=== PATIENT | female | born 1935 | race Caucasian/White ===

== ENCOUNTER 2016-12-21 14:31 | Emergency (ER) | payer MEDICARE, MEDICAID ==
[2016-12-21] MEDS ORDERED: Lorazepam 2 MG/ML VIAL ONE (14:55)
[2016-12-21] MEDS ORDERED: methylPREDNISolone Sod Succ/PF 125 MG/2 ML VIAL ONE (14:55)
[2016-12-21] MEDS ORDERED: Ketorolac Tromethamine 30 MG/ML VIAL ONE (15:05)
--- NOTE | 2016-12-21 15:10 | RAD ---
PORTABLE CHEST 1 VIEW: DATE: 12/21/16. TIME: 2:56 p.m. HISTORY: Dyspnea. Chest pain. FINDINGS: Comparison is made with the exam of 11/26/15. The heart size is prominent but stable. No focal areas of consolidation, pneumothorax, velasquez pulmon ashley edema, or pleural effusions are seen. There are postop changes in the right shoulder and the lo wer cervical spine. IMPRESSION: No acute process. POS: ELIJAH
[2016-12-21 15:44] LABS: #Basophils 0.1 thou/uL (0.0-0.2); #Eosinphils 0.7 thou/uL (0.0-0.7); #Lymphocytes 2.1 thou/uL (1.20-3.40); #Monocytes 1.3 thou/uL (0.11-0.59); #Neutrophils 5.9 thou/uL (1.40-6.50); %Basophils 1.2 % (0.0-1.0); %Lymphocytes 21.2 % (21.0-51.0); %Monocytes 12.4 % (0.0-10.0); %Neutrophils 58.3 % (42.0-75.0); Hemoglobin 14.8 g/dL (12.0-16.0); Mean Corpuscular HGB CONC 32.2 g/dL (32.0-36.0); Mean Corpuscular Hemoglobin 28.3 pg (27.0-31.0); Mean Corpuscular Volume 87.8 fl (81.0-99.0); Platelet Count 200 thou/uL (130-400); RBC Distribution Width 11.6 % (11.5-14.5); Red Blood Cell (RBC) Count 5.24 mill/uL (4.20-5.40); White Blood Cell (WBC) Count 10.1 thou/uL (4.8-10.8)
[2016-12-21 15:53] LABS: Anion Gap 15 mmol/L (10-20); BUN (Urea Nitrogen) 14 mg/dL (9.8-20.1); Calc. Creatinine Clearance 0 mL/min (70-130); Calcium 9.6 mg/dL (7.8-10.44); Carbon Dioxide 25 mmol/L (23-31); Chloride 102 mmol/L (98-107); Estimated GFR-MDRD 56; Glucose 119 mg/dL (83-110); Potassium 4.9 mmol/L (3.5-5.1); Sodium 137 mmol/L (136-145)
[2016-12-21 15:58] LABS: CKMB 1.2 ng/mL (0-6.6)
[2016-12-21] MEDS ORDERED: Azithromycin 250 MG TAB ONE (16:15)
== END 2016-12-21 16:32 | disposition home or self-care (01) ==
LOC: NAV ERS 14:31
DX: J20.9 Acute bronchitis, unspecified (principal); I49.9 Cardiac arrhythmia, unspecified; I48.91 Unspecified atrial fibrillation; I10 Essential (primary) hypertension; J45.909 Unspecified asthma, uncomplicated; F41.9 Anxiety disorder, unspecified; Z87.891 Personal history of nicotine dependence
CPT/HCPCS: 36415; 71010; 80048; 82553; 83880; 84484; 85025; 85379; 93005; 94760; 96374; 96375; J1885; J2060; J2930; J7620

== ENCOUNTER 2017-11-09 18:10 | Emergency (ER) | payer MEDICARE, OTHER ==
[2017-11-09] MEDS ORDERED: Colchicine 0.6 MG TAB ONE (18:56)
== END 2017-11-09 19:06 | disposition home or self-care (01) ==
LOC: NAV ERS 18:10
DX: M10.9 Gout, unspecified (principal); I48.91 Unspecified atrial fibrillation; J45.909 Unspecified asthma, uncomplicated; K58.9 Irritable bowel syndrome, unspecified; I10 Essential (primary) hypertension; F41.9 Anxiety disorder, unspecified; Z87.891 Personal history of nicotine dependence; Z79.899 Other long term (current) drug therapy
CPT/HCPCS: 99283

== ENCOUNTER 2017-11-25 14:54 | Emergency (ER) | payer MEDICARE, MEDICAID ==
--- NOTE | 2017-11-25 15:47 | RAD ---
TWO VIEW CHEST: COMPARISON: 12/21/16. INDICATION: Emergency exam, shortness of breath. FINDINGS: There is subtle patchy left basilar density. Right lung is grossly clear. Cardiac silhouette is nor mal in size as pulmonary vasculature. There is osseous degenerative change. No additional significa nt interval change. IMPRESSION: Patchy left basilar density. Correlate for evidence of pneumonia. Alternatively, this could relate to an area of atelectasis. Imaging followup may be obtained to confirm resolution. POS: ELIJAH
[2017-11-25 15:58] LABS: #Basophils 0.1 thou/uL (0.0-0.2); #Eosinphils 0.1 thou/uL (0.0-0.7); #Lymphocytes 3.2 thou/uL (1.20-3.40); #Monocytes 1.4 thou/uL (0.11-0.59); #Neutrophils 12.8 thou/uL (1.40-6.50); %Basophils 0.7 % (0.0-1.0); %Eosinophils 0.5 % (0.0-10.0); %Lymphocytes 18.3 % (21.0-51.0); %Monocytes 7.9 % (0.0-10.0); %Neutrophils 72.6 % (42.0-75.0); Hemoglobin 15.4 g/dL (12.0-16.0); Mean Corpuscular HGB CONC 31.6 g/dL (32.0-36.0); Mean Corpuscular Hemoglobin 27.1 pg (27.0-31.0); Mean Corpuscular Volume 85.7 fL (78.0-98.0); Mean Platelet Volume 11.1 fL (7.4-10.4); Platelet Count 214 thou/uL (130-400); RBC Distribution Width 12.8 % (11.5-14.5); Red Blood Cell (RBC) Count 5.67 mill/uL (4.20-5.40); White Blood Cell (WBC) Count 17.6 thou/uL (4.8-10.8)
[2017-11-25 16:03] LABS: ALT (SGPT) 30 U/L (8-55); AST (SGOT) 16 U/L (5-34); Albumin 4.2 g/dL (3.4-4.8); Alkaline Phosphatase 69 U/L (40-150); Anion Gap 16 mmol/L (10-20); BUN (Urea Nitrogen) 26 mg/dL (9.8-20.1); CK (CPK) 32 U/L (29-168); Calc. Creatinine Clearance 0 mL/min (70-130); Calcium 9.4 mg/dL (7.8-10.44); Carbon Dioxide 23 mmol/L (23-31); Chloride 104 mmol/L (98-107); Estimated GFR-MDRD 52; Globulin 2.9 g/dL (2.4-3.5); Glucose 150 mg/dL (83-110); Potassium 4.1 mmol/L (3.5-5.1); Protein, Total 7.1 g/dL (6.0-8.3); Sodium 139 mmol/L (136-145)
[2017-11-25 16:04] LABS: CKMB 0.6 ng/mL (0-6.6); Troponin I Less than 0.010 ng/mL (< 0.028)
== END 2017-11-25 18:08 | disposition short-term general hospital (02) ==
LOC: NAV ERS 14:54
DX: J18.9 Pneumonia, unspecified organism (principal); I48.91 Unspecified atrial fibrillation; K58.9 Irritable bowel syndrome, unspecified; I10 Essential (primary) hypertension; J45.909 Unspecified asthma, uncomplicated; F41.9 Anxiety disorder, unspecified; Z87.891 Personal history of nicotine dependence; Z79.899 Other long term (current) drug therapy; Z79.1 Long term (current) use of non-steroidal anti-inflammatories (NSAID)
CPT/HCPCS: 36415; 71046; 80053; 82550; 82553; 83880; 84484; 85025; 87040; 93005; 96365; J1956

== ENCOUNTER 2018-07-31 14:13 | Outpatient (CLI) | payer MEDICARE, OTHER ==
--- NOTE | 2018-07-31 14:26 | RAD ---
XR Chest Pa Lat STANDARD HISTORY:Cough COMPARISON: 11/25/2017 study FINDINGS: Heart size and mediastinum are within normal limits. The lungs are clear of any infiltrativ e process. There is some linear change in the left base which is stable and appears to represent scar. Postoperative changes of the right shoulder are noted. IMPRESSION: No acute findings.
== END 2018-07-31 14:14 | disposition home or self-care (01) ==
LOC: NAV RAD 14:13
PROVIDERS: ATTEND Family Medicine
DX: R05 Cough (principal)
CPT/HCPCS: 71046

== ENCOUNTER 2018-10-10 12:58 | Emergency (ER) | payer MEDICARE, OTHER ==
[2018-10-10] MEDS ORDERED: traMADol HCl 50 MG TAB ONE (14:06)
--- NOTE | 2018-10-10 14:35 | RAD ---
LEFT FOOT 3 VIEWS: HISTORY: Left foot pain, gout. FINDINGS/IMPRESSION: Mild degenerative changes are present. No fracture, dislocation, or bone destruction is identified. A plantar calcaneal spur is present. POS: ELIJAH
== END 2018-10-10 14:07 | disposition home or self-care (01) ==
LOC: NAV ERS 12:58
DX: M72.2 Plantar fascial fibromatosis (principal); M10.9 Gout, unspecified; I48.91 Unspecified atrial fibrillation; K58.9 Irritable bowel syndrome, unspecified; F41.9 Anxiety disorder, unspecified; G47.30 Sleep apnea, unspecified; I10 Essential (primary) hypertension; Z87.891 Personal history of nicotine dependence; Z79.51 Long term (current) use of inhaled steroids; Z79.899 Other long term (current) drug therapy

== ENCOUNTER 2018-10-15 14:16 | Outpatient (CLI) | payer MEDICARE, OTHER ==
--- NOTE | 2018-10-15 15:21 | RAD ---
RIGHT SHOULDER THREE VIEWS: 10/15/18 HISTORY: Right shoulder pain, post right shoulder replacement seven months ago. FINDINGS: Right total reverse shoulder arthroplasty changes. Anterior cervical fusion changes of the lower cerv ical spine. No evidence for acute fracture or dislocation. IMPRESSION: Reverse shoulder arthroplasty changes. Anterior cervical fusion changes of the lower cervical spine. Degenerative AC joint arthrosis changes but no acute fracture or dislocation. POS: C
== END 2018-10-15 14:17 | disposition home or self-care (01) ==
LOC: NAV RAD 14:16
PROVIDERS: ATTEND Orthopaedic Surgery
DX: M25.511 Pain in right shoulder (principal); M19.011 Primary osteoarthritis, right shoulder; Z96.611 Presence of right artificial shoulder joint; Z98.1 Arthrodesis status

== ENCOUNTER 2019-09-28 18:07 | Inpatient (IN) | payer MEDICARE, MEDICAID ==
[2019-09-28 18:25] VITALS: BMI 44.3
[2019-09-28] MEDS ORDERED: Albuterol Sulfate 2.5 mg/3 ml Neb NEB PRN (22:42)
[2019-09-28] MEDS ORDERED: Acetaminophen 325 MG TAB PO PRN (22:42)
[2019-09-28] MEDS ORDERED: Atorvastatin Calcium 10 MG TAB PO SCH (22:42)
[2019-09-28] MEDS ORDERED: Montelukast Sodium 10 mg Tablet PO SCH (22:42)
[2019-09-28] MEDS ORDERED: Senokot S 8.6-50 MG TAB PO PRN (22:42)
[2019-09-28] MEDS ORDERED: Apixaban 5 MG TAB PO SCH (22:42)
[2019-09-28] MEDS ORDERED: ALPRAZolam 0.5 MG TAB PO PRN (22:45)
[2019-09-28] MEDS ORDERED: tiZANidine HCl 4 MG TAB PO PRN (22:50)
[2019-09-28] MEDS ORDERED: Meclizine HCl 25 MG TAB PO PRN (22:52)
[2019-09-28] MEDS: Sodium Chloride 0.9% 1,000 ML IV SCH (22:57)
[2019-09-28] MEDS: Morphine 4 MG/ML VIAL SLOW IVP PRN (22:58)
[2019-09-28] MEDS: Ondansetron PF 4 MG/2 ML Vial IVP PRN (22:59)
[2019-09-28] MEDS ORDERED: Betamethasone Val 0.1% OINT 15 GM TUBE TOP SCH (23:00)
[2019-09-28] MEDS ORDERED: Hydrocortisone 1% Cream 30 GM TUBE TOP SCH (23:00)
[2019-09-28] MEDS: ALPRAZolam 0.5 MG TAB PO PRN (23:06)
[2019-09-29] MEDS: metroNIDAZOLE 500 MG in Premix Bag 1 BAG IVPB SCH ×3 (01:15→17:14)
[2019-09-29] MEDS ORDERED: Sodium Chloride 0.9% 20 ML ONE (05:38)
[2019-09-29 06:07] LABS: #Basophils 0.1 thou/uL (0.0-0.2); #Eosinphils 0.2 thou/uL (0.0-0.7); #Lymphocytes 2.6 thou/uL (1.20-3.40); #Monocytes 0.9 thou/uL (0.11-0.59); #Neutrophils 4.5 thou/uL (1.40-6.50); %Basophils 1.3 % (0.0-1.0); %Eosinophils 2.4 % (0.0-10.0); %Lymphocytes 30.8 % (21.0-51.0); %Monocytes 11.2 % (0.0-10.0); %Neutrophils 54.4 % (42.0-75.0); Hemoglobin 12.3 g/dL (12.0-16.0); Mean Corpuscular HGB CONC 30.8 g/dL (32.0-36.0); Mean Corpuscular Hemoglobin 28.8 pg (27.0-31.0); Mean Corpuscular Volume 93.4 fL (78.0-98.0); Platelet Count 138 thou/uL (130-400); Red Blood Cell (RBC) Count 4.26 mill/uL (4.20-5.40); White Blood Cell (WBC) Count 8.3 thou/uL (4.8-10.8)
[2019-09-29 06:11] LABS: Anion Gap 14 mmol/L (10-20); BUN (Urea Nitrogen) 9 mg/dL (9.8-20.1); Calc. Creatinine Clearance 88 mL/min (70-130); Calcium 7.9 mg/dL (7.8-10.44); Carbon Dioxide 21 mmol/L (23-31); Chloride 109 mmol/L (98-107); Estimated GFR-MDRD 65; Glucose 107 mg/dL (83-110); Sodium 140 mmol/L (136-145)
[2019-09-29] MEDS: Ondansetron PF 4 MG/2 ML Vial IVP PRN (07:11)
[2019-09-29] MEDS: Allopurinol 100 MG TAB PO SCH (09:08)
[2019-09-29] MEDS: Dronedarone HCl 400 MG TAB PO SCH ×2 (09:08→17:14)
[2019-09-29] MEDS: Fluticasone Propionate Nasal Spray 16 gm Bottle NASAL SCH (09:08)
[2019-09-29] MEDS: Metoprolol Tartrate 50 MG TAB PO SCH (09:09)
[2019-09-29] MEDS: Mometasone/Formoterol 200/5 60 PUFF INH SCH ×2 (09:11→20:39)
--- NOTE | 2019-09-29 11:14 | PRG ---
DATE OF SERVICE: 09/29/2019 SUBJECTIVE: The patient is an 84-year-old female, who was admitted last night for acute diverticulitis. The patient states that she was able to rest a little bit and that the acute sharp pain that she was experiencing yesterday is improved, but she still has pain primarily in the left lower quadrant. She had some nausea this morning and was dosed with Zofran, and she is now able to tolerate and holding down some liquids. The patient states that she is still not back to her baseline, but does feel like things are slowly improving. OBJECTIVE: VITAL SIGNS: Temperature 98.1, pulse 86, respiratory rate 18, O2 saturation 92% on room air, blood pressure 176/81. GENERAL: The patient is awake, alert, and oriented, in no acute distress. She is seen sitting up on the side of her bed. CARDIOVASCULAR: Regular rate and rhythm without murmurs, gallops, or rubs. LUNGS: Clear to auscultation bilaterally without wheezing or rhonchi. ABDOMEN: Soft. Tender to palpation in the left lower quadrant with bowel sounds. No guarding or rebound tenderness. EXTREMITIES: There is no clubbing or cyanosis. The patient has trace lower extremity edema, which is stable. PSYCHIATRIC: The patient displays appropriate mood and affect. LABORATORY DATA: 1. CBC: WBCs 8.3, hemoglobin 12.3, hematocrit 39.8, platelet count 138. 2. BMP: Sodium 140, potassium 4.0, chloride 109, bicarb 21, BUN 9, creatinine 0.8, glucose 107, calcium 7.9. ASSESSMENT AND PLAN: 1. Acute diverticulitis: The patient will continue with IV Cipro and Flagyl today. We will continue with liquids today, and if pain starts to improve, can advance diet. We will repeat a CBC in the morning. 2. Lactic acidosis: Repeat lactate had come down from 2.3 to 1.4. I think this is mostly due to dehydration. The patient has had IV fluids overnight. We will stop these this morning as the patient is now tolerating clear liquids. 3. Chronic atrial fibrillation: The patient is currently rhythm controlled with Multaq. We will continue her Eliquis. She does appear to be in a sinus rhythm this morning. 4. Hypertension: Blood pressure is elevated this morning, likely secondary to some pain. We will continue to monitor blood pressure. We have restarted her home medications. 5. Gastroesophageal reflux disease: Continue PPI. The patient's chart medical record number changed from the time that I had admitted the patient, dictated the patient, and placed on my orders to the time that the patient got to the floor. They are working to combine these charts and get the dictation move to the correct chart. Job ID: [id number]
[2019-09-29] MEDS: Morphine 4 MG/ML VIAL SLOW IVP PRN ×2 (11:57→17:32)
[2019-09-29] MEDS: Sodium Chloride 0.9% 1,000 ML IV SCH (13:18)
[2019-09-29] MEDS ORDERED: Sodium Chloride 0.9% 10 ML ONE ×2 (16:53→18:18)
[2019-09-29] MEDS: ALPRAZolam 0.5 MG TAB PO PRN (20:39)
[2019-09-29] MEDS: Apixaban 5 MG TAB PO SCH (20:41)
[2019-09-29] MEDS ORDERED: Atorvastatin Calcium 10 MG TAB PO SCH (21:00)
[2019-09-29] MEDS ORDERED: Montelukast Sodium 10 mg Tablet PO SCH (21:00)
[2019-09-30] MEDS: Ondansetron PF 4 MG/2 ML Vial IVP PRN (00:41)
[2019-09-30] MEDS: metroNIDAZOLE 500 MG in Premix Bag 1 BAG IVPB SCH (00:41)
[2019-09-30 05:32] LABS: #Basophils 0.1 thou/uL (0.0-0.2); #Eosinphils 0.1 thou/uL (0.0-0.7); #Lymphocytes 2.9 thou/uL (1.20-3.40); #Monocytes 0.8 thou/uL (0.11-0.59); #Neutrophils 5.7 thou/uL (1.40-6.50); %Basophils 0.8 % (0.0-1.0); %Eosinophils 0.7 % (0.0-10.0); %Lymphocytes 30.6 % (21.0-51.0); %Monocytes 8.6 % (0.0-10.0); %Neutrophils 59.2 % (42.0-75.0); Hemoglobin 12.3 g/dL (12.0-16.0); Mean Corpuscular HGB CONC 31.2 g/dL (32.0-36.0); Mean Corpuscular Hemoglobin 28.8 pg (27.0-31.0); Mean Corpuscular Volume 92.3 fL (78.0-98.0); Mean Platelet Volume 11.2 fL (7.4-10.4); Platelet Count 151 thou/uL (130-400); RBC Distribution Width 12.8 % (11.5-14.5); Red Blood Cell (RBC) Count 4.27 mill/uL (4.20-5.40); White Blood Cell (WBC) Count 9.6 thou/uL (4.8-10.8)
[2019-09-30 05:43] LABS: Anion Gap 12 mmol/L (10-20); BUN (Urea Nitrogen) 8 mg/dL (9.8-20.1); Calc. Creatinine Clearance 75 mL/min (70-130); Calcium 8.1 mg/dL (7.8-10.44); Carbon Dioxide 24 mmol/L (23-31); Chloride 105 mmol/L (98-107); Estimated GFR-MDRD 55; Glucose 121 mg/dL (83-110); Potassium 4.4 mmol/L (3.5-5.1); Sodium 137 mmol/L (136-145)
[2019-09-30] MEDS: Mometasone/Formoterol 200/5 60 PUFF INH SCH (08:32)
[2019-09-30] MEDS: Fluticasone Propionate Nasal Spray 16 gm Bottle NASAL SCH (08:33)
[2019-09-30] MEDS: Metoprolol Tartrate 50 MG TAB PO SCH (08:33)
[2019-09-30] MEDS: Apixaban 5 MG TAB PO SCH (08:34)
[2019-09-30] MEDS: Allopurinol 100 MG TAB PO SCH (08:34)
[2019-09-30] MEDS: Dronedarone HCl 400 MG TAB PO SCH (08:36)
--- NOTE | 2019-09-30 08:50 | PRG ---
DATE OF SERVICE: 09/30/2019 SUBJECTIVE: The patient is an 84-year-old female, hospitalized for acute diverticulitis. The patient states that she is tired of the clear liquid diet. She notes that there is significant improvement in her left lower quadrant pain and is able to maneuver herself in and out of the bed without pain. OBJECTIVE: VITAL SIGNS: Temperature 97.0, pulse 72, respiration rate 20, O2 sat 94% on room air, and blood pressure 142/76. GENERAL: The patient is awake, alert, oriented, in no acute distress. CARDIOVASCULAR: Regular rate and rhythm without murmurs, gallops or rubs. LUNGS: Clear to auscultation bilaterally without wheezing or rhonchi. ABDOMEN: Soft. Very minimal tenderness noted to the left lower quadrant on deep palpation. No guarding or rebound tenderness is noted. Bowel sounds are present. EXTREMITIES: There is no clubbing or cyanosis. The patient has trace edema in bilateral lower extremities. PSYCHIATRIC: The patient displays an appropriate mood and affect. LABORATORY DATA: 1. CBC: WBCs 9.6, hemoglobin 12.3, hematocrit 39.4, and platelet count 151. 2. BMP: Sodium 137, potassium 4.4, chloride 105, bicarb 24, BUN 8, creatinine 0.97, glucose 121, and calcium 8.1. ASSESSMENT AND PLAN: 1. Acute diverticulitis: We will transition the patient from IV Cipro and Flagyl to p.o. We will also advance the patient's diet, and if she tolerates this, can likely be discharged home this afternoon. 2. Hypertension: Blood pressures are stable. 3. Lactic acidosis, resolved. 4. Chronic atrial fibrillation: The patient is currently rhythm controlled with Multaq and continues on Eliquis for anticoagulation. 5. Gastroesophageal reflux disease: Continue PPI. Job ID: [id number]
[2019-09-30] MEDS: metroNIDAZOLE 500 MG TAB PO SCH ×2 (09:54→14:23)
[2019-09-30 14:09] VITALS: BP 125/60; TEMP 97.7
[2019-09-30] MEDS ORDERED: Ciprofloxacin 500 MG TAB PO SCH (20:00)
== END 2019-09-30 14:50 | disposition home or self-care (01) | DRG 392 ==
LOC: INTOOBSV 18:07 → NAV ACUTE 18:07 → OBSVTOIN 18:07
PROVIDERS: ADMIT Family Medicine; ATTEND Family Medicine
DX: K57.92 Diverticulitis of intestine, part unspecified, without perforation or abscess without bleeding (principal); E87.2 Acidosis; I48.20 Chronic atrial fibrillation, unspecified; K21.9 Gastro-esophageal reflux disease without esophagitis; E86.0 Dehydration; I10 Essential (primary) hypertension; Z79.01 Long term (current) use of anticoagulants
CPT/HCPCS: 36415; 71045; 74177; 80048; 80053; 81003; 81015; 83605; 83690; 84484; 85025; 87040; 93005; 94640; 94760; 96361; 96365; 96375; 96376; J0744; J2270; J2405; J7050; J7611; Q9967

== ENCOUNTER 2020-05-17 10:57 | Emergency (ER) | payer MEDICARE, OTHER ==
[2020-05-17] MEDS ORDERED: Sulfameth/Trimethoprim DS 800-160mg TAB ONE (11:26)
== END 2020-05-17 11:34 | disposition home or self-care (01) ==
LOC: NAV ERS 10:57
DX: S51.811D Laceration without foreign body of right forearm, subsequent encounter (principal); L03.113 Cellulitis of right upper limb; I48.91 Unspecified atrial fibrillation; K58.9 Irritable bowel syndrome, unspecified; I10 Essential (primary) hypertension; J45.909 Unspecified asthma, uncomplicated; G47.30 Sleep apnea, unspecified; M10.9 Gout, unspecified; Z87.891 Personal history of nicotine dependence; Z79.01 Long term (current) use of anticoagulants; Z79.899 Other long term (current) drug therapy; Z79.891 Long term (current) use of opiate analgesic; Z85.828 Personal history of other malignant neoplasm of skin; X58.XXXD Exposure to other specified factors, subsequent encounter
CPT/HCPCS: 99283

== ENCOUNTER 2021-07-24 08:59 | Outpatient (CLI) | payer MEDICARE, OTHER ==
[2021-07-24 09:47] LABS: ALT (SGPT) 21 U/L (8-55); AST (SGOT) 27 U/L (5-34); Alkaline Phosphatase 63 U/L (40-110); Anion Gap 17 mmol/L (10-20); BUN (Urea Nitrogen) 13 mg/dL (9.8-20.1); Bilirubin, Total 1.3 mg/dL (0.2-1.2); Calc. Creatinine Clearance 0 mL/min (70-130); Calcium 9.6 mg/dL (7.8-10.44); Carbon Dioxide 26 mmol/L (23-31); Chloride 104 mmol/L (98-107); Globulin 3.3 g/dL (2.4-3.5); Glucose 128 mg/dL (83-110); Lipase 39 U/L (8-78); Potassium 4.3 mmol/L (3.5-5.1); Protein, Total 7.3 g/dL (5.8-8.1); Sodium 143 mmol/L (136-145)
[2021-07-24 10:11] LABS: #Basophils 0.1 thou/uL (0.0-0.2); #Eosinphils 0.2 thou/uL (0.0-0.7); #Lymphocytes 3.6 thou/uL (1.20-3.40); #Monocytes 0.7 thou/uL (0.11-0.59); #Neutrophils 4.4 thou/uL (1.40-6.50); %Basophils 1.1 % (0.0-1.0); %Eosinophils 2.1 % (0.0-10.0); %Monocytes 7.6 % (0.0-10.0); %Neutrophils 49.2 % (42.0-75.0); Hemoglobin 14.9 g/dL (12.0-16.0); Mean Corpuscular HGB CONC 29.9 g/dL (32.0-36.0); Mean Corpuscular Hemoglobin 27.9 pg (27.0-31.0); Mean Corpuscular Volume 93.3 fL (78.0-98.0); Mean Platelet Volume 11.6 fL (7.4-10.4); Platelet Count 176 thou/uL (130-400); RBC Distribution Width 13.1 % (11.5-14.5); Red Blood Cell (RBC) Count 5.34 mill/uL (4.20-5.40); White Blood Cell (WBC) Count 8.9 thou/uL (4.8-10.8)
[2021-07-24 10:17] LABS: Follow-up Chemistry Comp? YES; Follow-up Hematology Comp? YES; Follow-up Result - Chemistry REPORT FAXED; Follow-up Result - Hematology REPORT FAXED
== END 2021-07-24 09:00 | disposition home or self-care (01) ==
LOC: NAV LAB 08:59
PROVIDERS: ATTEND Internal Medicine
DX: K57.92 Diverticulitis of intestine, part unspecified, without perforation or abscess without bleeding (principal); K58.1 Irritable bowel syndrome with constipation; R10.13 Epigastric pain; R10.30 Lower abdominal pain, unspecified; R11.2 Nausea with vomiting, unspecified
CPT/HCPCS: 36415; 74177; 80053; 83690; 85025; Q9967

== ENCOUNTER 2021-07-24 09:11 | Outpatient (CLI) | payer MEDICARE, OTHER ==
[~2021-07-24 09:11] MED LIST: Iopamidol 370 76% 100 ML VIAL ONE
== END 2021-07-24 09:12 | disposition home or self-care (01) ==
LOC: NAV CT 09:11
PROVIDERS: ATTEND Internal Medicine
DX: R10.13 Epigastric pain (principal); R10.30 Lower abdominal pain, unspecified; R11.2 Nausea with vomiting, unspecified; K58.1 Irritable bowel syndrome with constipation; K57.92 Diverticulitis of intestine, part unspecified, without perforation or abscess without bleeding
CPT/HCPCS: 74177

== ENCOUNTER 2022-07-02 10:55 | Outpatient (CLI) | payer OTHER, MEDICAID | END 2022-07-02 10:56 | disposition home or self-care (01) | LOC: NAV RAD 10:55 | PROVIDERS: ATTEND Family Medicine | DX: J45.909 Unspecified asthma, uncomplicated (principal) | CPT/HCPCS: 71046 ==

== ENCOUNTER 2023-03-21 14:12 | Outpatient (CLI) | payer OTHER, MEDICAID | END 2023-03-21 14:13 | disposition home or self-care (01) | LOC: NAV RAD 14:12 | PROVIDERS: ATTEND Student in an Organized Health Care Education/Training Program | DX: M54.2 Cervicalgia (principal); M25.551 Pain in right hip; M54.9 Dorsalgia, unspecified; M47.814 Spondylosis without myelopathy or radiculopathy, thoracic region; M25.78 Osteophyte, vertebrae; M48.02 Spinal stenosis, cervical region; M47.816 Spondylosis without myelopathy or radiculopathy, lumbar region; M47.812 Spondylosis without myelopathy or radiculopathy, cervical region; I70.0 Atherosclerosis of aorta; I70.8 Atherosclerosis of other arteries; M48.14 Ankylosing hyperostosis [Forestier], thoracic region; Z98.1 Arthrodesis status | CPT/HCPCS: 72050; 72080; 72110 ==

== ENCOUNTER 2023-05-11 11:28 | Emergency (ER) | payer OTHER, MEDICAID ==
[2023-05-11] MEDS ORDERED: predniSONE 20 MG TAB ONE (12:10)
== END 2023-05-11 12:21 | disposition home or self-care (01) ==
LOC: NAV ERS 11:28
DX: J44.1 Chronic obstructive pulmonary disease with (acute) exacerbation (principal); I11.0 Hypertensive heart disease with heart failure; I50.9 Heart failure, unspecified; Z87.891 Personal history of nicotine dependence; Z79.899 Other long term (current) drug therapy
CPT/HCPCS: 87635; 99283; J7512

== ENCOUNTER 2023-06-28 11:19 | Outpatient (CLI) | payer OTHER, MEDICAID | END 2023-06-28 11:20 | disposition home or self-care (01) | LOC: NAV RAD 11:19 | PROVIDERS: ATTEND Student in an Organized Health Care Education/Training Program | DX: M25.561 Pain in right knee (principal); M25.562 Pain in left knee; M17.0 Bilateral primary osteoarthritis of knee ==

== ENCOUNTER 2023-12-17 16:15 | Emergency (ER) | payer OTHER ==
[2023-12-17 17:15] LABS: Hematocrit 34.9 % (36.0-47.0); Hemoglobin 10.3 g/dL (12.0-16.0); Mean Corpuscular HGB CONC 29.5 g/dL (32.0-36.0); Mean Corpuscular Hemoglobin 21.3 pg (27.0-31.0); Mean Corpuscular Volume 72.3 fl (78.0-98.0); Mean Platelet Volume 10.8 fL (7.4-10.4); Platelet Count 124 10x3/uL (130-400); RBC Distribution Width 15.3 % (11.5-14.5); Red Blood Cell (RBC) Count 4.82 mill/uL (4.20-5.40); White Blood Cell (WBC) Count 10.5 10x3/uL (4.8-10.8)
[2023-12-17 17:29] LABS: ALT (SGPT) 12 U/L (8-55); AST (SGOT) 20 U/L (5-34); Albumin 3.6 g/dL (3.4-4.8); Alkaline Phosphatase 61 U/L (40-110); Anion Gap 20 mmol/L (10-20); BUN (Urea Nitrogen) 11 mg/dL (9.8-20.1); Bilirubin, Total 0.6 mg/dL (0.2-1.2); Calc. Creatinine Clearance 0 mL/min (70-130); Carbon Dioxide 19 mmol/L (23-31); Chloride 103 mmol/L (98-107); Estimated GFR 58; Globulin 3.9 g/dL (2.4-3.5); Glucose 163 mg/dL (83-110); Lipase 41 U/L (8-78); Potassium 4.6 mmol/L (3.5-5.1); Protein, Total 7.5 g/dL (5.8-8.1); Sodium 137 mmol/L (136-145)
[2023-12-17 17:35] LABS: Troponin I 0.021 ng/mL (< 0.028)
[2023-12-17] MEDS ORDERED: methylPREDNISolone Sod Succ/PF 125 MG/2 ML VIAL ONE (18:03)
[2023-12-17] MEDS ORDERED: Azithromycin 250 MG TAB ONE (18:03)
[2023-12-17 19:06] LABS: MDiff Complete? YES
[2023-12-17 19:09] LABS: Anisocytosis SLIGHT = 6-15 cells (100X) (0-5/hpf); Eosinophils 2 % (0-10); Hypochromia SLIGHT = 6-15 cells (100X) (0-5/hpf); Lymphocytes 28 % (21-51); Metamyelocyte 1 % (0-0); Microcytosis SLIGHT = 6-15 cells (100X) (0-5/hpf); Monocytes 4 % (0-10); Neutrophil 65 % (42-75); Poikilocytosis SLIGHT = 6-15 cells (100X) (0-5/hpf)
[2023-12-17 19:10] LABS: Elliptocytes SLIGHT = 2-5 cells (100X) (0-1/hpf); Ovalocytes SLIGHT = 2-5 cells (100X) (0-1/hpf); Platelet Adequacy Comment Appears Decreased; Spherocytes SLIGHT = 1-5 cells (100X) (None Seen)
== END 2023-12-17 19:26 | disposition home or self-care (01) ==
LOC: NAV ERS 16:15
DX: J20.9 Acute bronchitis, unspecified (principal); I48.91 Unspecified atrial fibrillation; J44.9 Chronic obstructive pulmonary disease, unspecified; I11.0 Hypertensive heart disease with heart failure; I50.9 Heart failure, unspecified; Z87.891 Personal history of nicotine dependence; Z79.01 Long term (current) use of anticoagulants
CPT/HCPCS: 71045; 80053; 83690; 83880; 84484; 85025; 93005; 96374; J2919

== ENCOUNTER 2025-01-19 08:06 | Emergency (ER) | payer OTHER, MEDICAID | END 2025-01-19 09:35 | disposition home or self-care (01) | LOC: NAV ERS 08:06 | DX: S90.32XA Contusion of left foot, initial encounter (principal); S01.311D Laceration without foreign body of right ear, subsequent encounter; I11.0 Hypertensive heart disease with heart failure; I50.9 Heart failure, unspecified; I48.91 Unspecified atrial fibrillation; W22.09XA Striking against other stationary object, initial encounter; Z87.891 Personal history of nicotine dependence; Z79.01 Long term (current) use of anticoagulants; Z79.899 Other long term (current) drug therapy | CPT/HCPCS: 99283 ==

== ENCOUNTER 2025-02-01 07:09 | Inpatient (IN) | payer OTHER, MEDICAID ==
[2025-02-01] MEDS ORDERED: Acetaminophen 325 MG TAB PO PRN (12:30)
[2025-02-01] MEDS: HYDROcodone/Acetaminophen 10/325 mg Tablet PO PRN ×2 (18:46→22:45)
[2025-02-01] MEDS ORDERED: Estradiol [Estrace 0.01% Vaginal Cream] 42.5 GM Tube VAG SCH (19:00)
[2025-02-01] MEDS: Benzonatate 100 MG CAP PO PRN (20:36)
[2025-02-01] MEDS: Allopurinol 100 MG TAB PO SCH (20:36)
[2025-02-01] MEDS: Apixaban 5 MG TAB PO SCH (20:36)
[2025-02-01] MEDS: Mometasone 100 MCG/PUFF (1 INHALER) INH SCH (20:38)
[2025-02-02 06:18] LABS: ALT (SGPT) 12 U/L (Less than 34); AST (SGOT) 26 U/L (11-34); Albumin 2.9 g/dL (3.1-4.5); Alkaline Phosphatase 59 U/L (40-110); Anion Gap 15 mmol/L (10-20); BUN (Urea Nitrogen) 18 mg/dL (9.8-20.1); Bilirubin, Total 1.1 mg/dL (0.3-1.2); Calc. Creatinine Clearance 67 mL/min (70-130); Calcium 8.4 mg/dL (7.8-10.44); Carbon Dioxide 25 mmol/L (23-31); Chloride 100 mmol/L (98-107); Globulin 4.0 g/dL (2.4-3.5); Glucose 139 mg/dL (83-110); Potassium 4.3 mmol/L (3.5-5.1); Sodium 136 mmol/L (136-145)
[2025-02-02 06:23] LABS: #Basophils 0.1 thou/uL (0.0-0.2); #Eosinophils 0.2 thou/uL (0.0-0.7); #Lymphocytes 2.4 thou/uL (1.20-3.40); #Monocytes 0.9 thou/uL (0.11-0.59); #Neutrophils 3.8 thou/uL (1.40-6.50); %Basophils 1.6 % (0.0-1.0); %Eosinophils 3.0 % (0.0-10.0); %Lymphocytes 31.8 % (21.0-51.0); %Monocytes 12.3 % (0.0-10.0); %Neutrophils 51.4 % (42.0-75.0); Hematocrit 32.5 % (36.0-47.0); Hemoglobin 11.0 g/dL (12.0-16.0); Mean Corpuscular Hemoglobin 26.0 pg (27.0-31.0); Mean Corpuscular Volume 76.7 fl (78.0-98.0); Platelet Count 175 10x3/uL (130-400); Red Blood Cell (RBC) Count 4.24 mill/uL (4.20-5.40); White Blood Cell (WBC) Count 7.4 10x3/uL (4.8-10.8)
[2025-02-02] MEDS ORDERED: ALPRAZolam 0.5 MG TAB PO PRN (08:06)
[2025-02-02] MEDS: Furosemide 20 MG TAB PO SCH (08:25)
[2025-02-02] MEDS: Pantoprazole 40 MG DR.TAB PO SCH (08:26)
[2025-02-02] MEDS ORDERED: Mometasone 100 MCG/PUFF (1 INHALER) INH PRN (10:54)
[2025-02-02] MEDS: Senokot S 8.6-50 MG TAB PO PRN (16:42)
[2025-02-02] MEDS: Ferrous Sulfate 325 MG TAB PO SCH (18:23)
[2025-02-02] MEDS: Calcium Carbonate 500 MG ChewTAB PO PRN (21:15)
[2025-02-02] MEDS: HYDROcodone/Acetaminophen 10/325 mg Tablet PO PRN (22:55)
[2025-02-03] MEDS: HYDROcodone/Acetaminophen 10/325 mg Tablet PO PRN (05:35)
[2025-02-06] MEDS: ALPRAZolam 0.5 MG TAB PO PRN (20:25)
[2025-02-09 16:04] VITALS: BMI 43.4
[2025-02-10 05:48] LABS: #Basophils 0.1 thou/uL (0.0-0.2); #Eosinophils 0.2 thou/uL (0.0-0.7); #Lymphocytes 2.2 thou/uL (1.20-3.40); #Monocytes 0.7 thou/uL (0.11-0.59); #Neutrophils 4.9 thou/uL (1.40-6.50); %Basophils 1.6 % (0.0-1.0); %Eosinophils 2.8 % (0.0-10.0); %Lymphocytes 26.8 % (21.0-51.0); %Monocytes 8.3 % (0.0-10.0); %Neutrophils 60.5 % (42.0-75.0); Hematocrit 29.5 % (36.0-47.0); Hemoglobin 9.4 g/dL (12.0-16.0); Mean Corpuscular Hemoglobin 27.8 pg (27.0-31.0); Mean Corpuscular Volume 87.6 fl (78.0-98.0); Platelet Count 229 10x3/uL (130-400); Red Blood Cell (RBC) Count 3.37 mill/uL (4.20-5.40); White Blood Cell (WBC) Count 8.0 10x3/uL (4.8-10.8)
[2025-02-10 06:00] LABS: ALT (SGPT) 14 U/L (Less than 34); AST (SGOT) 30 U/L (11-34); Albumin 3.0 g/dL (3.1-4.5); Alkaline Phosphatase 63 U/L (40-110); Anion Gap 14 mmol/L (10-20); BUN (Urea Nitrogen) 19 mg/dL (9.8-20.1); Bilirubin, Total 1.1 mg/dL (0.3-1.2); Calc. Creatinine Clearance 61 mL/min (70-130); Calcium 8.4 mg/dL (7.8-10.44); Carbon Dioxide 25 mmol/L (23-31); Chloride 102 mmol/L (98-107); Globulin 3.6 g/dL (2.4-3.5); Glucose 154 mg/dL (83-110); Potassium 4.3 mmol/L (3.5-5.1); Sodium 137 mmol/L (136-145)
[2025-02-12 06:09] VITALS: BMI 43.7
[2025-02-13 08:40] VITALS: BP 125/57; TEMP 97.9
== END 2025-02-13 10:30 | disposition home or self-care (01) | DRG 945 ==
LOC: NAV ACUTE 16:57
PROVIDERS: ADMIT Student in an Organized Health Care Education/Training Program; ATTEND Student in an Organized Health Care Education/Training Program
PROC: F07Z9ZZ Gait Training/Functional Ambulation Treatment (ICD-10-PCS; principal; 2025-02-01)
DX: R53.81 Other malaise (principal); I50.32 Chronic diastolic (congestive) heart failure; E78.5 Hyperlipidemia, unspecified; I48.0 Paroxysmal atrial fibrillation; M10.9 Gout, unspecified; G47.33 Obstructive sleep apnea (adult) (pediatric); Z96.652 Presence of left artificial knee joint; I11.0 Hypertensive heart disease with heart failure; J43.9 Emphysema, unspecified; G47.00 Insomnia, unspecified; R13.10 Dysphagia, unspecified; R42 Dizziness and giddiness; G62.9 Polyneuropathy, unspecified; D53.9 Nutritional anemia, unspecified; K58.9 Irritable bowel syndrome, unspecified; Z91.048 Other nonmedicinal substance allergy status; Z88.8 Allergy status to other drugs, medicaments and biological substances; Z91.040 Latex allergy status; Z88.0 Allergy status to penicillin; Z88.6 Allergy status to analgesic agent; Z98.890 Other specified postprocedural states; Z90.49 Acquired absence of other specified parts of digestive tract; Z90.710 Acquired absence of both cervix and uterus
CPT/HCPCS: 36415; 36416; 80053; 85025; Q0162